=== PATIENT | male | born 1990 ===

== ENCOUNTER 2022-03-17 11:36 | Emergency (ER) | payer OTHER, BC ==
[2022-03-17] MEDS ORDERED: Lidocaine 1% with EPINEPHrine 1:100,000 20 ML MDV INFILT ONE (11:37)
[2022-03-17] MEDS ORDERED: Diphtheria,Pertussis(Acell),Tetanus Vaccine 0.5 ML Syringe IM ONE (11:39)
[2022-03-17] MEDS ORDERED: Ketorolac 30 MG/ML SDV IM ONE (11:39)
[2022-03-17] MEDS ORDERED: Lidocaine 1% with EPINEPHrine 1:100,000 20 ML MDV INJECT ONE (11:54)
== END 2022-03-17 13:40 | disposition home or self-care (01) ==
LOC: FB.ED 11:36
DX: S01.511A Laceration without foreign body of lip, initial encounter (principal); S01.111A Laceration without foreign body of right eyelid and periocular area, initial encounter; S61.412A Laceration without foreign body of left hand, initial encounter; S20.212A Contusion of left front wall of thorax, initial encounter; R04.0 Epistaxis; Z88.1 Allergy status to other antibiotic agents; Z23 Encounter for immunization; V48.9XXA Unspecified car occupant injured in noncollision transport accident in traffic accident, initial encounter; Y92.410 Unspecified street and highway as the place of occurrence of the external cause
CPT/HCPCS: 12002; 12013; 90471; 90715; 96372; 99284; J1885